=== PATIENT | female | born 1970 | race Caucasian/White ===

== ENCOUNTER 2019-06-01 10:38 | Emergency (ER) | payer OTHER ==
[~2019-06-01] VITALS: Ht 152.4 cm; Wt 55.0 kg
[~2019-06-01 10:38] MED LIST: LORA-249 PO; OXYC10TA58 PO
[2019-06-01] MEDS ORDERED: KETOROLAC 30MG/ML VIAL IV STA (11:02)
[2019-06-01 11:29] LABS: BASOPHILS % 0.8 % (0.0-2.0); EOSINOPHILS % 1.9 % (0.0-5.0); HEMATOCRIT. 38.7 % (36.0-48.0); HEMOGLOBIN. 12.5 g/dL (12.0-16.0); LYMPHOCYTES % 12.7 % (20.0-50.0); MEAN CORPUSCULAR HEMOGLOBIN 24.8 pg (28.0-32.0); MEAN CORPUSCULAR VOLUME 76.8 fL (81.0-99.0); MEAN PLATELET VOLUME 8.8 fl (7.4-10.4); MONOCYTES % 5.4 % (2.0-8.0); NEUTROPHILS % 79.2 % (40.0-76.0); PLATELET 332 x1000/uL (130-400); RED BLOOD CELL COUNT 5.04 mill/uL (4.2-5.4); RED CELL DISTRIBUTION WIDTH 18.1 % (11.6-14.6)
[2019-06-01 11:37] LABS: CHLORIDE 103 mEq/L (98-107); HCG SCREEN NEGATIVE
[2019-06-01 11:38] LABS: PROTHROMBIN TIME 10.1 sec (9.6-11.0)
[2019-06-01 12:56] VITALS: BP 204/93
== END 2019-06-01 13:19 | disposition home or self-care (01) ==
LOC: ER 10:38
DX: N94.6 Dysmenorrhea, unspecified (principal); I10 Essential (primary) hypertension
CPT/HCPCS: 36415; 74176; 80053; 83690; 84703; 85025; 85610; 96374; 99284; J1885; Z7610

== ENCOUNTER 2019-06-28 18:41 | Emergency (ER) | payer OTHER ==
[~2019-06-28] VITALS: Ht 165.1 cm; Wt 72.0 kg
[2019-06-28] MEDS ORDERED: SODIUM CHLORIDE 0.9% 1,000 ML IV ONE (18:56)
[2019-06-28 19:43] LABS: BASOPHILS % 1.1 % (0.0-2.0); CHLORIDE 105 mEq/L (98-107); EOSINOPHILS % 2.4 % (0.0-5.0); HEMATOCRIT. 24.1 % (36.0-48.0); HEMOGLOBIN. 7.5 g/dL (12.0-16.0); LYMPHOCYTES % 20.9 % (20.0-50.0); MEAN CORPUSCULAR HEMOGLOBIN 24.4 pg (28.0-32.0); MEAN CORPUSCULAR VOLUME 78.1 fL (81.0-99.0); MEAN PLATELET VOLUME 8.9 fl (7.4-10.4); MONOCYTES % 6.3 % (2.0-8.0); NEUTROPHILS % 69.3 % (40.0-76.0); PLATELET 323 x1000/uL (130-400); RED BLOOD CELL COUNT 3.08 mill/uL (4.2-5.4); RED CELL DISTRIBUTION WIDTH 15.2 % (11.6-14.6)
[2019-06-28 19:45] LABS: PARTIAL THROMBOPLASTIN TIME 26.4 sec (23.4-31.0); PROTHROMBIN TIME 10.4 sec (9.6-11.0)
[2019-06-28] MEDS ORDERED: KETOROLAC 15MG/ML VIAL IV ONE (20:30)
[2019-06-28 20:43] LABS: HCG SCREEN NEGATIVE
[2019-06-28 22:56] LABS: COLOR URINE YELLOW (YELLOW); KETONES URINE NEGATIVE (NEGATIVE); LEUKOCYTE ESTERASE URINE NEGATIVE (NEGATIVE); NITRITE URINE NEGATIVE (NEGATIVE); OCCULT BLOOD URINE 3+ (NEGATIVE); PH URINE 5.5 (4.5-8.0); PROTEIN URINE 1+ (NEGATIVE); SPECIFIC GRAVITY URINE 1.009 (1.005-1.030); UROBILINOGEN URINE 0.2 E.U./dL (0.2-1.0)
[2019-06-28 22:59] LABS: CLARITY URINE HAZY (CLEAR)
[2019-06-29] VITALS: BP 145/65
== END 2019-06-29 00:12 | disposition home or self-care (01) ==
LOC: ER 18:46
DX: R10.0 Acute abdomen (principal); R55 Syncope and collapse; N93.8 Other specified abnormal uterine and vaginal bleeding
CPT/HCPCS: 36415; 70450; 71045; 74176; 80053; 81003; 81025; 83880; 84484; 84703; 85025; 85610; 85730; 86850; 86900; 86901; 93005; 96361; 96374; 99284; J1885; J7030

== ENCOUNTER 2022-03-11 17:23 | Emergency (ER) | payer OTHER ==
[~2022-03-11] VITALS: Ht 154.9 cm; Wt 57.0 kg
[2022-03-11] MEDS ORDERED: TETANUS, DIPHTHERIA, PERTUSSIS VAC/PF 0.5ML (>10YR OLD) IM ONE ×2 (19:15→22:00)
[2022-03-11] MEDS ORDERED: IBUPROFEN 400MG TABLET PO ONE (19:45)
[2022-03-11] MEDS ORDERED: CLIN-194 MT (21:38)
[2022-03-11] MEDS ORDERED: DOXY100C5 MT (21:38)
[2022-03-11] MEDS ORDERED: IBUPROFEN 400MG TABLET PO NR (21:45)
[2022-03-12 01:00] VITALS: BP 122/78
== END 2022-03-12 01:00 | disposition home or self-care (01) ==
LOC: ER 17:23
DX: S61.452A Open bite of left hand, initial encounter (principal); S61.253A Open bite of left middle finger without damage to nail, initial encounter; W54.0XXA Bitten by dog, initial encounter; I11.0 Hypertensive heart disease with heart failure; I50.9 Heart failure, unspecified; E11.9 Type 2 diabetes mellitus without complications; Y93.89 Activity, other specified; Y92.018 Other place in single-family (private) house as the place of occurrence of the external cause; Z79.899 Other long term (current) drug therapy
CPT/HCPCS: 73130; 90471; 90715; 99283